=== PATIENT | male | born 1990 | race Caucasian/White ===

== ENCOUNTER → 2017-09-28 | Outpatient (CLI) | payer BC ==
[~2017-09-28] MED LIST: AUGMENTIN 875 M1 TAB PO; FLAGYL500 MG PO; MOTRIN 600600 MG/TAB PO; NO HOME MEDICATIONS; NORCO 325 MG-51 TAB PO; VICODIN 5/5001 UDTAB PO
== END ==
LOC: COL.RAD 08:56
DX: S73.191A Other sprain of right hip, initial encounter (principal); M85.68 Other cyst of bone, other site
CPT/HCPCS: A9585; Q9967

== ENCOUNTER → 2017-10-27 | Outpatient (CLI) | payer BC | LOC: COL.RAD 13:51 | DX: M53.3 Sacrococcygeal disorders, not elsewhere classified (principal) | CPT/HCPCS: G0260; J3301 ==

== ENCOUNTER → 2020-12-29 | Outpatient (CLI) | payer OTHER | LOC: COL.RAD 12:56 | DX: S73.191A Other sprain of right hip, initial encounter (principal) | CPT/HCPCS: A9585; J3301; Q9967 ==